=== PATIENT | male | born 1995 | race Caucasian/White ===

== ENCOUNTER → 2023-02-25 12:00 | Outpatient (CLI) | payer OTHER, SELFPAY ==
--- NOTE | 2023-02-25 12:50 | ECG_ITS ---
APPROVED REPORT Exam: Resting ECG HR:68 bpm ECG Measurements Heart Rate 68 AXES AK 150 P 9 QRSd 114 QRS 30 QT 361 T 44 QTc 378 Conclusion SINUS RHYTHM WITH SINUS ARRHYTHMIA MODERATE INTRAVENTRICULAR CONDUCTION DELAY [110+ ms QRS DURATION] BORDERLINE ECG UNCONFIRMED REPORT Electronically signed by : Venu Mcneill MD 02/28/2023 11:07:39
[2023-02-25 13:19] LABS: Basophils # 0.1 K/mm3 (0-0.2); Basophils % 0.7 % (0.1-2.0); Eosinophils # 0.1 K/mm3 (0.0-0.4); Eosinophils % 1.2 % (0.1-12.0); Hematocrit 44.4 % (42.0-52.0); Hemoglobin 14.8 g/dL (14.1-18.0); Lymphocytes # 2.7 K/mm3 (0.7-4.5); Lymphocytes % 36.6 % (10-50); Mean Corpuscular HGB Conc 33.3 g/dL (31.8-35.4); Mean Corpuscular Hemoglobin 30.4 pg (27.0-31.2); Mean Corpuscular Volume 91.2 fl (80-94); Monocytes # 0.4 K/mm3 (0.1-1.0); Monocytes % 5.3 % (1.7-9.3); Neutrophils # 4.1 K/mm3 (1.8-7.8); Neutrophils % 56.2 % (37.0-80.0); Platelet Count 241 K/mm3 (142-424); Red Blood Count 4.86 M/mm3 (4.60-6.20); Red Cell Distribution Width 13.3 % (11.5-17.5); White Blood Count 7.2 K/mm3 (4.8-10.8)
[2023-02-25 13:49] LABS: Alanine Aminotransferase 31 U/L (12-78); Albumin Level 4.5 g/dl (3.5-5.0); Albumin/Globulin Ratio 1.5 (1.1-1.8); Alkaline Phosphatase 59 U/L (38-126); Anion Gap 10.6 mEq/L (5-15); Aspartate Amino Transferase 26 U/L (17-59); Bilirubin,Total 0.3 mg/dl (0.2-1.3); Blood Urea Nitrogen 11 mg/dl (9-20); Calcium 10.1 mg/dl (8.4-10.2); Carbon Dioxide 33 mmol/L (22.0-30.0); Chloride 98 mmol/L (98-107); Chol/HDL Ratio 3.8 (1-3.5); Cholesterol 196 mg/dl (140-200); Estimated Glomerular Filt Rate 133 ml/min (>60); GFR (African American) 161 ML/MIN (>60); Glucose 136 mg/dl (74-100); HDL Cholesterol 52 mg/dl (40-60); Potassium 4.6 mmoL/L (3.5-5.1); Sodium 137 mmol/L (136-145); Total Protein,Serum 7.5 g/dl (6.3-8.2); Triglycerides 77 mg/dl (30-150); VLDL Cholesterol 15 mg/dL (0-40)
[2023-02-25 14:01] LABS: Direct LDL Cholesterol 113.88 mg/dL (100-129)
[2023-02-25 14:20] LABS: Thyroid Stimulating Hormone 2.32 uIU/mL (0.465-4.68)
== END ==
PROVIDERS: PCP Family Medicine; Visit Provider Nurse Practitioner Family
DX: Z01.818 Encounter for other preprocedural examination (principal)
CPT/HCPCS: 36415; 80053; 80061; 84443; 85025; 93005